=== PATIENT | female | born 1985 | race Caucasian/White ===

== ENCOUNTER 2020-10-01 10:23 | Outpatient (REF) | payer BC, SELFPAY ==
[2020-10-01 10:32] LABS: MANUAL DIFF FLAG NO
[2020-10-01 10:54] LABS: Basophils Percent Auto 0.6 % (0-2); Eosinophils Absolute Auto 0.1 X10*3/uL (0.0-0.4); Eosinophils Percent Auto 2.6 % (0-4); Hematocrit 41.4 % (37-47); Imm Gran Abs Auto 0.01 X10*3/uL (0.00-0.03); Imm Gran Pct Auto 0.2 % (0.0-0.4); Lymphocytes Absolute Auto 1.6 X10*3/uL (1.2-4.9); Lymphocytes Percent Auto 29.6 % (20-40); Mean Corpuscular HGB Conc 31.4 g/dl (31.0-35.0); Mean Corpuscular Hemoglobin 25.6 pg (27.0-33.0); Mean Corpuscular Volume 81.7 fL (80-98); Mean Platelet Volume 12.4 fL (9.4-12.3); Monocytes Absolute Auto 0.3 X10*3/uL (0.1-1.2); Monocytes Percent Auto 5.5 % (2-11); Neutrophils Absolute Auto 3.3 X10*3/uL (2.0-8.3); Neutrophils Percent Auto 61.5 % (45-73); Platelet Count 191 X10*3/uL (160-400); Red Blood Count 5.07 X10*6/uL (4.20-5.50); Red Cell Distribution Width 14.8 % (11.0-16.0); White Blood Count 5.4 X10*3/uL (4.8-10.8)
[2020-10-01 11:04] LABS: Estimated Average Glucose 103 mg/dL; Hemoglobin A1c % 5.2 %
[2020-10-01 11:09] LABS: Glucose Urine UA NEG (NEG); Leukocyte Esterase Urine NEG (NEG); Nitrite Urine NEG (NEG); Urine Blood NEG (NEG); Urine Ketones NEG (NEG); Urine Protein NEG (NEG-TRACE)
[2020-10-01 11:15] LABS: Appearance Urine CLEAR; Color Urine YELLOW
[2020-10-01 11:34] LABS: Alanine Aminotransferase 11 U/L (0-31); Albumin Level 3.8 g/dL (3.5-5.0); Alkaline Phosphatase 28 U/L (39-117); Anion Gap 12 (12-20); Aspartate Amino Transferase 12 U/L (5-31); Bilirubin Total 0.3 mg/dL (0.0-1.0); Blood Urea Nitrogen 19 mg/dL (9-16); Calcium 8.6 mg/dL (8.4-10.2); Carbon Dioxide 22 mmol/L (22-29); Chloride 110 mmol/L (96-108); Cholesterol 146 mg/dL; Estimated Glomerular Filt Rate > 60; Glucose Fasting 85 mg/dL (60-99); HDL Cholesterol 31 mg/dL; LDL Cholesterol Calculated 95 mg/dl; Potassium 4.2 mmol/L (3.3-5.1); Sodium 140 mmol/L (135-145); Total Protein 7.1 g/dL (6.5-8.0); Triglycerides 104 mg/dL
[2020-10-02 12:38] LABS: Iron 49 mcg/dL (30-160); Percent Iron Saturation 11 % (15-50); Total Iron Binding Capacity 458 mcg/dL (228-428); Unsaturated Iron Binding 409 ug/dL
== END 2020-10-01 10:24 | disposition home or self-care (01) ==
LOC: HO.LNP 10:23
PROVIDERS: PCP Internal Medicine; Visit Provider Internal Medicine
DX: Z00.00 Encounter for general adult medical examination without abnormal findings (principal); D50.8 Other iron deficiency anemias; R73.03 Prediabetes
CPT/HCPCS: 80053; 80061; 81003; 83036; 83540; 85025

== ENCOUNTER 2021-10-06 10:35 | Outpatient (REF) | payer BC, SELFPAY ==
[2021-10-06 10:42] LABS: MANUAL DIFF FLAG NO
[2021-10-06 11:01] LABS: Appearance Urine CLEAR; Color Urine YELLOW; Glucose Urine UA NEG (NEG); Leukocyte Esterase Urine NEG (NEG); Nitrite Urine NEG (NEG); Urine Blood TRACE (NEG); Urine Ketones NEG (NEG); Urine Protein NEG (NEG-TRACE)
[2021-10-06 11:02] LABS: Basophils Percent Auto 0.4 % (0-2); Eosinophils Absolute Auto 0.1 X10*3/uL (0.0-0.4); Eosinophils Percent Auto 2.8 % (0-4); Hematocrit 38.8 % (37.0-47.0); Hemoglobin 11.9 g/dl (12.0-16.0); Imm Gran Abs Auto 0.02 X10*3/uL (0.00-0.03); Imm Gran Pct Auto 0.4 % (0.0-0.4); Lymphocytes Absolute Auto 1.3 X10*3/uL (1.2-4.9); Lymphocytes Percent Auto 28.4 % (20-40); Mean Corpuscular HGB Conc 30.7 g/dl (31.0-35.0); Mean Corpuscular Hemoglobin 24.3 pg (27.0-33.0); Mean Corpuscular Volume 79.2 fL (80.0-98.0); Mean Platelet Volume 12.2 fL (9.4-12.3); Monocytes Absolute Auto 0.3 X10*3/uL (0.1-1.2); Neutrophils Absolute Auto 2.9 x10*3/uL (2.0-8.3); Platelet Count 177 X10*3/uL (160-400); Red Cell Distribution Width 14.6 % (11.0-16.0); White Blood Count 4.7 X10*3/uL (4.8-10.8)
[2021-10-06 11:18] LABS: Alanine Aminotransferase 13 U/L (0-31); Albumin Level 3.7 g/dL (3.5-5.0); Alkaline Phosphatase 36 U/L (39-117); Anion Gap 11 (12-20); Aspartate Amino Transferase 12 U/L (5-31); Bilirubin Total 0.2 mg/dL (0.0-1.0); Blood Urea Nitrogen 17 mg/dL (9-16); Calcium 8.6 mg/dL (8.4-10.2); Carbon Dioxide 23 mmol/L (22-29); Chloride 108 mmol/L (96-108); Cholesterol 153 mg/dL; Estimated Average Glucose 100 mg/dL; Estimated Glomerular Filt Rate > 60; Glucose Random 89 mg/dL (60-115); HDL Cholesterol 38 mg/dL; Hemoglobin A1c % 5.1 %; Iron 25 mcg/dL (30-160); LDL Cholesterol Calculated 97 mg/dl; Potassium 3.8 mmol/L (3.3-5.1); Sodium 138 mmol/L (135-145); Total Protein 6.8 g/dL (6.5-8.0); Triglycerides 90 mg/dL
[2021-10-06 11:26] LABS: Percent Iron Saturation 5 % (15-50); Total Iron Binding Capacity 469 mcg/dL (228-428); Unsaturated Iron Binding 444 ug/dL
[2021-10-06 11:39] LABS: Bacteria Urine TRACE /LPF; Squamous Epithelial Cell Urine 1+ /LPF; WBC Urine 0 /HPF (0-4)
[2021-10-06 12:32] LABS: Creatinine Urine 79.79 mg/dL; Microalbum/Creatinine Ratio Ur 6.2 ug/mg cr
== END 2021-10-06 10:36 | disposition home or self-care (01) ==
LOC: HO.LNP 10:35
PROVIDERS: Visit Provider Internal Medicine
DX: Z00.00 Encounter for general adult medical examination without abnormal findings (principal); D50.8 Other iron deficiency anemias; R73.03 Prediabetes; E78.6 Lipoprotein deficiency
CPT/HCPCS: 80053; 80061; 81001; 81003; 82043; 83036; 83540; 85025

== ENCOUNTER 2022-09-21 09:21 | Outpatient (REF) | payer BC, SELFPAY ==
--- NOTE | ~2022-09-21 | XR_ITS ---
EXAMINATION: XR FINGER, RIGHT CLINICAL INFORMATION: Pain right finger COMPARISON: None TECHNIQUE: AP view right hand and 2 views of the right third finger are obtained for 3 views. FINDINGS: There is no fracture, dislocation, destructive process. No periarticular demineralization. No joint narrowing or erosive change or chondrocalcinosis. There is a small nonexpansile benign-appearing sclerotic lesion medial tuft distal phalanx 3rd finger, likely bone island. No periostitis. XR/XR finger RT min 2V IMPRESSION: 1. No fracture, destructive process, or arthropathy. 2. Benign-appearing sclerotic lesion tuft distal phalanx 3rd finger, likely bone island.
== END 2022-09-21 09:22 | disposition home or self-care (01) ==
LOC: HO.XRAY 09:21
PROVIDERS: PCP Internal Medicine; Visit Provider Internal Medicine
DX: M79.644 Pain in right finger(s) (principal)
CPT/HCPCS: 73140

== ENCOUNTER 2022-10-09 11:12 | Outpatient (REF) | payer BC, SELFPAY ==
[2022-10-09 11:19] LABS: MANUAL DIFF FLAG NO
[2022-10-09 11:45] LABS: Basophils Percent Auto 0.4 % (0-2); Eosinophils Absolute Auto 0.1 X10*3/uL (0.0-0.4); Eosinophils Percent Auto 2.2 % (0-4); Hematocrit 40.2 % (37.0-47.0); Hemoglobin 13.2 g/dl (12.0-16.0); Imm Gran Abs Auto 0.01 X10*3/uL (0.00-0.03); Imm Gran Pct Auto 0.2 % (0.0-0.4); Lymphocytes Absolute Auto 1.2 X10*3/uL (1.2-4.9); Lymphocytes Percent Auto 22.7 % (20-40); Mean Corpuscular HGB Conc 32.8 g/dl (31.0-35.0); Mean Corpuscular Hemoglobin 27.4 pg (27.0-33.0); Mean Corpuscular Volume 83.6 fL (80.0-98.0); Mean Platelet Volume 12.3 fL (9.4-12.3); Monocytes Absolute Auto 0.3 X10*3/uL (0.1-1.2); Monocytes Percent Auto 6.1 % (2-11); Neutrophils Absolute Auto 3.5 x10*3/uL (2.0-8.3); Neutrophils Percent Auto 68.4 % (45-73); Platelet Count 169 X10*3/uL (160-400); Red Blood Count 4.81 X10*6/uL (4.20-5.50); Red Cell Distribution Width 12.6 % (11.0-16.0); White Blood Count 5.1 X10*3/uL (4.8-10.8)
[2022-10-09 11:48] LABS: Appearance Urine Clear; Color Urine Yellow; Glucose Urine UA Negative (Negative); Leukocyte Esterase Urine Negative (Negative); Nitrite Urine Negative (Negative); PH 6.5 (5.0-9.0); Specific Gravity - Urine 1.015 (1.005-1.025); Urine Blood Negative (Negative); Urine Ketones Negative (Negative); Urine Protein Negative (Neg-Trace)
[2022-10-09 11:52] LABS: Bacteria Urine None Seen (None Seen); Hyaline Casts Urine 0-2 /LPF (0-2); RBC Urine 0-2 /HPF (0-2); Squamous Epithelial Cell Urine 0-2 /HPF (0-2); WBC Urine 0-5 /HPF (0-5)
[2022-10-09 12:00] LABS: Alanine Aminotransferase 16 U/L (0-31); Albumin Level 3.8 g/dL (3.5-5.0); Alkaline Phosphatase 37 U/L (39-117); Anion Gap 11 (12-20); Aspartate Amino Transferase 13 U/L (5-31); Bilirubin Total 0.4 mg/dL (0.0-1.0); Blood Urea Nitrogen 18 mg/dL (9-16); Calcium 8.3 mg/dL (8.4-10.2); Carbon Dioxide 24 mmol/L (22-29); Chloride 107 mmol/L (96-108); Cholesterol 146 mg/dL; Estimated Glomerular Filt Rate > 60; Glucose Fasting 84 mg/dL (60-99); HDL Cholesterol 33 mg/dL; Iron 76 mcg/dL (30-160); LDL Cholesterol Calculated 92 mg/dl; Percent Iron Saturation 21 % (15-50); Potassium 4.1 mmol/L (3.3-5.1); Sodium 138 mmol/L (135-145); Total Iron Binding Capacity 369 mcg/dL (228-428); Total Protein 6.7 g/dL (6.5-8.0); Triglycerides 107 mg/dL; Unsaturated Iron Binding 293 ug/dL
[2022-10-09 12:05] LABS: Estimated Average Glucose 100 mg/dL; Hemoglobin A1c % 5.1 %
[2022-10-09 12:28] LABS: Creatinine Urine 91.83 mg/dL; Microalbum/Creatinine Ratio Ur 6.5 ug/mg cr
== END 2022-10-09 11:13 | disposition home or self-care (01) ==
LOC: HO.LNP 11:12
PROVIDERS: Visit Provider Internal Medicine
DX: Z00.00 Encounter for general adult medical examination without abnormal findings (principal); D50.8 Other iron deficiency anemias; R73.09 Other abnormal glucose; E78.6 Lipoprotein deficiency
CPT/HCPCS: 80053; 80061; 81001; 82043; 83036; 83540; 85025

== ENCOUNTER 2023-04-28 08:24 | Outpatient (REF) | payer BC, SELFPAY | END 2023-04-28 08:25 | disposition home or self-care (01) | LOC: HO.HMGCX 08:24 | PROVIDERS: PCP Internal Medicine; Visit Provider Internal Medicine | DX: R10.84 Generalized abdominal pain (principal) | CPT/HCPCS: 76700 ==

== ENCOUNTER 2023-05-17 12:52 | Outpatient (AMB) | payer BC, SELFPAY ==
--- NOTE | 2023-05-17 12:54 | MHC.OFFVIS ---
Intake Vital Signs 05/17/23 12:57 Height 5 ft 8 in Weight 189 lb BMI 28.7 BP 188/117 H Blood Pressure Location Rt brachial Position Sitting Pulse 118 H Intake Visit Reasons: Abdominal pain, cholelithiasis Intake Note: Patient referred for gallbladder issues. Patient reports 3 pain attacks since January. Experienced nausea. Was diagnoses with Covid on 05-02-23 at home tests showing negative results. Denies diarrhea or constipation. Lending Manager Required: No Accompanied by: Self / Same As Patient Allergies No Known Allergies Allergy (Verified 05/17/23 13:01) HPI HPI Comments History of Present Illness Details Patient presents because of recurrent bouts of right upper quadrant pain radiating around to her back. She has had at least 3 episodes of this. Workup her daughter by her private physician demonstrated cholelithiasis. Patient otherwise is tolerating her diet. She is having regular bowel habits. She has never been jaundiced before. Chart was reviewed patient evaluated [facility] Surgical History (Updated 05/17/23 @ 13:35 by Tramaine Cochran MD) Hx of local excision of skin lesion Family History (Updated 05/17/23 @ 13:04 by PAYTON Lockett) Father Prostate CA Social History (Updated 05/17/23 @ 13:05 by PAYTON Lockett) Alcohol intake: never Patient Tobacco Use Status: Never used Tobacco Physical Exam Vital Signs: Last Vital Signs Pulse 118 H 05/17/23 12:57 BP 188/117 H 05/17/23 12:57 BMI result Body Mass Index 28.7 Chest Other: Chest breath sounds bilaterally, HS 1 in 2 GI Other: Abdomen soft, moderately corpulent, benign. Assessment & Plan Assessment & Plan (1) Recurrent biliary colic: Code(s): K80.50 - Calculus of bile duct without cholangitis or cholecystitis without obstruction Plan A lengthy discussion was had about the risks, benefits, alternatives laparoscopic possible open cholecystectomy which included but not limited to bleeding, infection, recurrence of symptoms, numbness, pain, scarring, bowel or bile duct injury or leak and the patient wishes to proceed. All questions were answered. Arrangements will be made for this on the day which is convenient for the patient. Coding Level of Care Code New Pt Level 5 (88423) Diagnoses Recurrent biliary colic K80.50
[2023-05-17 12:57] VITALS: BP 188/117; PULSE 118; BMI 28.7
== END 2023-05-17 13:17 | disposition home or self-care (01) ==
PROVIDERS: PCP Internal Medicine; Visit Provider Surgery
DX: K80.50 Calculus of bile duct without cholangitis or cholecystitis without obstruction (principal)
CPT/HCPCS: 99204

== ENCOUNTER → 2023-05-17 12:52 | Outpatient (BNVA) | payer BC, SELFPAY | PROVIDERS: PCP Internal Medicine; Visit Provider Surgery ==

== ENCOUNTER 2023-06-03 08:22 | Day surgery (SDC) | payer BC, SELFPAY ==
[2023-05-31 15:20] VITALS: BMI 28.7
--- NOTE | 2023-06-02 04:25 | MHC.SHP ---
Pre-Procedural Eval Section A Date of Service: 06/02/23 The patient is an INPATIENT: No Changes since office visit: No Cold of Flu in the past 2 weeks, No New Medical Problems, No Changes in Medication and No Patient answered all questions The History & Physical has been completed within 30 days and I have reviewed it.: Yes Section B Chief Complaint: Calculus of bile duct without cholangitis or vazquez Allergies: Allergies Allergy/AdvReac Type Severity Reaction Status Date / Time No Known Allergies Allergy Verified 05/17/23 13:01 Plan I have reviewed the history and physical and performed a pertinent physical examination on my patient. No changes have occurred unless specified. Time Spent With Patient Time: Total time managing care of this patient today ____ minutes.
[2023-06-03] VITALS (9 sets, daily range): BP systolic 129–148; BP diastolic 86–93; PULSE 71–83; RESP 16–18; TEMP 36.6–37.2; O2SAT 96–98
[2023-06-03 08:42] LABS: UPreg QC Valid YES; Urine Pregnancy NEGATIVE (NEGATIVE)
--- NOTE | 2023-06-03 08:55 | P.CONAN_ITS ---
Documented by User: Yumiko Garnett NP 06/02/23 08:16 HPI - Anesthesia Eval Consult details Narrative: 38yo F for Cholecystectomy Laparoscopic PMFSH Active Problems Active Problems: All Active Problems (Updated 05/17/23 @ 13:35 by Tramaine Cochran MD) Recurrent biliary colic (Acute) Past Medical History Medical History Asthma Anxiety Family History Family History Father Prostate CA Surgical History Surgical History Hx of local excision of skin lesion Social History Social History Alcohol intake: never Patient Tobacco Use Status: Never used Tobacco Advance Directives: No Advance Directives Information Provided: Yes Meds Allergies Allergy/AdvReac Type Severity Reaction Status Date / Time No Known Allergies Allergy Verified 05/17/23 13:01 Home Medications Medication Instructions Recorded Confirmed Last Taken Type cetirizine 10 mg capsule (Zyrtec) 10 mg PO DAILY PRN Allergy Symptoms 05/17/23 05/31/23 Unknown History fluticasone propionate 50 1 spray intranasal DAILY 05/17/23 05/31/23 Unknown History mcg/actuation nasal spray,suspension lorazepam 1 mg capsule,extended 1 mg PO DAILY 05/17/23 05/31/23 Unknown History release 24 hr albuterol sulfate 90 mcg/actuation 2 puff inhalation Q4H PRN Wheezing 05/31/23 05/31/23 Unknown History aerosol inhaler Exam Exam Date and Time: June 02, 2023 0816 Height,Weight and Vital Signs: Height 5 ft 8 in Weight 85.729 kg Pertinent Lab Results Pertinent Lab Results: Laboratory Tests 10/09/22 08:00 WBC 5.1 Hgb 13.2 Hct 40.2 Plt Count 169 Sodium 138 Potassium 4.1 Chloride 107 Carbon Dioxide 24 BUN 18 H Creatinine 0.76 Assessment and Plan Assessment Anesthesia Assessment: Chart Reviewed Documented by User: Arianna Telles DO 06/03/23 08:57 PMFSH Past Medical History Medical History Asthma Anxiety Family History Family History Father Prostate CA Family history of problems with anesthesia: No Surgical History Surgical History Hx of local excision of skin lesion History of Problems with Anesthesia: No Social History Social History Alcohol intake: never Patient Tobacco Use Status: Never used Tobacco Advance Directives: No Advance Directives Information Provided: Yes Meds Allergies Allergy/AdvReac Type Severity Reaction Status Date / Time No Known Allergies Allergy Verified 05/17/23 13:01 Home Medications Medication Instructions Recorded Confirmed Last Taken Type cetirizine 10 mg capsule (Zyrtec) 10 mg PO DAILY PRN Allergy Symptoms 05/17/23 05/31/23 Unknown History fluticasone propionate 50 1 spray intranasal DAILY 05/17/23 05/31/23 Unknown History mcg/actuation nasal spray,suspension lorazepam 1 mg capsule,extended 1 mg PO DAILY 05/17/23 05/31/23 Unknown History release 24 hr albuterol sulfate 90 mcg/actuation 2 puff inhalation Q4H PRN Wheezing 05/31/23 05/31/23 Unknown History aerosol inhaler Exam Exam Date and Time: June 03, 2023 0855 Height,Weight and Vital Signs: Height 5 ft 8 in Weight 85.729 kg Vital Signs Temperature 99.0 F 06/03/23 08:50 Pulse Rate 81 06/03/23 08:50 Respiratory Rate 18 06/03/23 08:50 Blood Pressure 138/93 H 06/03/23 08:50 Pulse Oximetry 98 06/03/23 08:50 Oxygen Delivery Method Room Air 06/03/23 08:50 Temperature 99.0 F 06/03/23 08:50 Pulse Rate 81 06/03/23 08:50 Respiratory Rate 18 06/03/23 08:50 Blood Pressure 138/93 H 06/03/23 08:50 Pulse Oximetry 98 06/03/23 08:50 Oxygen Delivery Method Room Air 06/03/23 08:50 Airway Mallampati Class: I TM Dist: >3cm Neck ROM: Full Loose/Missing/Broken Teeth: No Heart: S1S2 Lungs: CTAB Assessment and Plan Assessment Anesthesia Assessment: Anesthesia Plan Discussed and Chart Reviewed Final Anesthetic Review Family History of Problems with Anesthesia: No History of Problems with Anesthesia: No NPO: Yes ASA Class: II Final Preanesthetic Review: No Changes in Pt Med Stat, Meds/Allgs Chart Re viewed, Consent Obtained/Reviewed and Anes Risks/Benef Reviewed Patient Risk: Low Procedure Risk: Low Anesthetic Plan Anesthetic Plan: GA and Agree w/ Assess. and Plan Disposition: Standard PACU
[2023-06-03] MEDS: Lactated Ringers 1,000 ML 100 ML IVCONT (08:57)
--- NOTE | 2023-06-03 09:50 | P.OP_ITS ---
Operative Note Operative Note Date of Service: 06/03/23 Narrative: Preoperative diagnosis: [] recurrent biliary colic Postop diagnosis: [] same Procedure [] laparoscopic cholecystectomy Surgeon: [] Dimas Vehicle Body Maker: [] Doron Type of Anesthesia: [] general Indication for surgery: [] very large gallbladder with omental adhesions to it Findings: [] patient brought to the operating room, placed on operative table in supine position, after adequate level of general anesthesia was induced, the patient's abdomen which was moderately corpulent was prepped and draped in usual sterile fashion. Using a supraumbilical curvilinear incision, Arias technique was used to insufflate the abdominal cavity to 15 mm of CO2. Upper midline and right subcostal ports were placed under direct laparoscopic view, and the patient placed in reverse Trendelenburg position, and tilted to the left. Findings were as noted above. Gallbladder was grasped using laparoscopic graspers and retracted superiorly and laterally. Omental adhesions were swept off the gallbladder were its hilum was approached. The common bile duct, Cystic artery and cystic duct were all identified. The latter 2 were traced directly into the gallbladder, circumferentially dissected out, and critical view obtained. Each was clipped proximally x2, distally x1, and transected. Gallbladder which was intrahepatic was cauterized from the gallbladder fossa using Bovie. A small posterior descending vessel well into the hilum was clipped during the dissection. Specimen was placed in an Endo-Catch bag, a retrieved through the umbilical port. Abdominal cavity was copiously irrigated, and secured hemostasis. All ports removed under direct laparoscopic view. Wounds were closed in the following manner; umbilical wound has fascia reapproximated using interrupted 0 Vicryl sutures. Skin wounds were closed using subcuticular 4-0 Vicryl sutures followed by Steri-Strips and sterile dressings. Wounds were infiltrated 0.5% Marcaine at completion. Sponge, needle, instrument counts were reported to be correct. Patient tolerated the procedure well and emerged from anesthesia in stable condition. EBL minimal
[2023-06-03] MEDS: Acetaminophen 325 MG TABLET 650 MG PO (10:31)
== END 2023-06-03 11:39 | disposition home or self-care (01) ==
PROVIDERS: Nurse Practitioner; PCP Internal Medicine; Visit Provider Surgery
PROC: 0FT44ZZ Resection of Gallbladder, Percutaneous Endoscopic Approach (ICD-10-PCS; CPT 47562; principal; 2023-06-03 10:20)
DX: K80.10 Calculus of gallbladder with chronic cholecystitis without obstruction (principal); K82.8 Other specified diseases of gallbladder; J45.909 Unspecified asthma, uncomplicated; F41.9 Anxiety disorder, unspecified; Z79.51 Long term (current) use of inhaled steroids; Z79.899 Other long term (current) drug therapy; Z86.16 Personal history of COVID-19
CPT/HCPCS: 47562; 81025; 88304; J0665; J0690; J1100; J1885; J2405; J3010

== ENCOUNTER → 2023-06-03 08:22 | Outpatient (BNV) | payer BC, SELFPAY | PROVIDERS: PCP Internal Medicine; Visit Provider Surgery | DX: K80.50 Calculus of bile duct without cholangitis or cholecystitis without obstruction (principal) | CPT/HCPCS: 47562 ==

== ENCOUNTER 2023-06-15 10:41 | Outpatient (AMB) | payer BC, SELFPAY ==
[2023-06-15 10:48] VITALS: BP 184/90; PULSE 78
--- NOTE | 2023-06-15 10:48 | A.OFFVIS_ITS ---
Intake Vital Signs 06/15/23 10:48 Weight 186 lb BP 184/90 H Blood Pressure Location Rt brachial Position Sitting Pulse 78 Intake Visit Reasons: s/p lap vazquez Intake Note: Patient here s/p la vazquez on 06-03-23. Reports incision healing well. C/o tenderness. Denies oozing, itch. No longer taking rx pain meds. Senior Business Analyst Required: No Accompanied by: Self / Same As Patient Allergies No Known Allergies Allergy (Verified 06/15/23 10:49) HPI HPI Comments History of Present Illness Details Patient presents for follow-up. Aside from mild incisional discomfort , she is doing well. She is tolerating a diet. Having regular bowel habits. Activity level of is increasing. PFSH Medical History Asthma Anxiety Surgical History Hx of local excision of skin lesion Family History Father Prostate CA Alcohol intake: never Patient Tobacco Use Status: Never used Tobacco Physical Exam Vital Signs: Last Vital Signs Pulse 78 06/15/23 10:48 BP 184/90 H 06/15/23 10:48 Eyes Other: Anicteric GI Other: Soft. All wounds clean dry and intact. Assessment & Plan Assessment & Plan (1) Recurrent biliary colic: Code(s): K80.50 - Calculus of bile duct without cholangitis or cholecystitis without obstruction Plan Patient has been given local instructions, and will follow-up p.r.n.. Avoid strenuous activities next few weeks time. Ambulate as tolerated. All questions answered. Coding Level of Care Code Global (39661) Diagnoses Recurrent biliary colic K80.50
== END 2023-06-15 10:53 | disposition home or self-care (01) ==
PROVIDERS: PCP Internal Medicine; Visit Provider Surgery
DX: K80.50 Calculus of bile duct without cholangitis or cholecystitis without obstruction (principal)
CPT/HCPCS: 99024

== ENCOUNTER → 2023-06-15 10:41 | Outpatient (BNVA) | payer BC, SELFPAY | PROVIDERS: PCP Internal Medicine; Visit Provider Surgery ==

== ENCOUNTER 2023-10-14 12:07 | Outpatient (REF) | payer BC, SELFPAY ==
[2023-10-14 12:14] LABS: MANUAL DIFF FLAG NO
[2023-10-14 12:22] LABS: Basophils Percent Auto 0.2 % (0-2); Eosinophils Absolute Auto 0.1 X10*3/uL (0.0-0.4); Hematocrit 39.4 % (37.0-47.0); Hemoglobin 12.9 g/dl (12.0-16.0); Imm Gran Abs Auto 0.01 X10*3/uL (0.00-0.03); Imm Gran Pct Auto 0.2 % (0.0-0.4); Lymphocytes Absolute Auto 0.9 X10*3/uL (1.2-4.9); Lymphocytes Percent Auto 20.8 % (20-40); Mean Corpuscular HGB Conc 32.7 g/dl (31.0-35.0); Mean Corpuscular Hemoglobin 26.8 pg (27.0-33.0); Mean Corpuscular Volume 81.9 fL (80.0-98.0); Mean Platelet Volume 10.8 fL (9.4-12.3); Monocytes Absolute Auto 0.3 X10*3/uL (0.1-1.2); Monocytes Percent Auto 6.7 % (2-11); Neutrophils Absolute Auto 3.1 x10*3/uL (2.0-8.3); Neutrophils Percent Auto 70.1 % (45-73); Platelet Count 175 X10*3/uL (160-400); Red Blood Count 4.81 X10*6/uL (4.20-5.50); Red Cell Distribution Width 13.5 % (11.0-16.0); White Blood Count 4.5 X10*3/uL (4.8-10.8)
[2023-10-14 12:23] LABS: Appearance Urine Clear; Color Urine Yellow; Glucose Urine UA Negative (Negative); Leukocyte Esterase Urine Negative (Negative); Nitrite Urine Negative (Negative); PH 6.5 (5.0-9.0); Specific Gravity - Urine 1.015 (1.005-1.025); Urine Blood Negative (Negative); Urine Ketones Negative (Negative); Urine Protein Negative (Neg-Trace)
[2023-10-14 12:25] LABS: Bacteria Urine None Seen (None Seen); Hyaline Casts Urine 0-2 /LPF (0-2); RBC Urine 0-2 /HPF (0-2); Squamous Epithelial Cell Urine 0-2 /HPF (0-2); WBC Urine 0-5 /HPF (0-5)
[2023-10-14 12:56] LABS: Creatinine Urine 89.21 mg/dL; Microalbum/Creatinine Ratio Ur 6.7 ug/mg cr (<30)
[2023-10-14 13:07] LABS: TSH reflex Free T4 2.34 uIU/mL (0.32-4.0)
[2023-10-14 13:12] LABS: Alanine Aminotransferase 21 U/L (0-31); Albumin Level 3.6 g/dL (3.5-5.0); Alkaline Phosphatase 44 U/L (39-117); Anion Gap 12 (12-20); Aspartate Amino Transferase 16 U/L (5-31); Bilirubin Total 0.4 mg/dL (0.0-1.0); Blood Urea Nitrogen 12 mg/dL (9-16); Calcium 8.5 mg/dL (8.4-10.2); Carbon Dioxide 25 mmol/L (22-29); Chloride 108 mmol/L (96-108); Cholesterol 154 mg/dL (<200); Estimated Glomerular Filt Rate > 60; Glucose Fasting 84 mg/dL (60-99); HDL Cholesterol 38 mg/dL (>40); Iron 75 mcg/dL (30-160); LDL Cholesterol Calculated 98 mg/dL (<100); Percent Iron Saturation 22 % (15-50); Potassium 3.6 mmol/L (3.3-5.1); Sodium 141 mmol/L (135-145); Total Iron Binding Capacity 348 mcg/dL (228-428); Total Protein 6.4 g/dL (6.5-8.0); Triglycerides 92 mg/dL (<150); Unsaturated Iron Binding 273 ug/dL
[2023-10-14 13:16] LABS: Estimated Average Glucose 100 mg/dL; Hemoglobin A1c % 5.1 % (<6.0)
== END 2023-10-14 12:08 | disposition home or self-care (01) ==
LOC: HO.LNP 12:07
PROVIDERS: Visit Provider Internal Medicine
DX: Z00.00 Encounter for general adult medical examination without abnormal findings (principal); R73.03 Prediabetes; D50.8 Other iron deficiency anemias; E78.6 Lipoprotein deficiency
CPT/HCPCS: 80053; 80061; 81001; 82043; 82570; 83036; 83540; 84443; 85025

== ENCOUNTER 2023-12-12 17:20 | Emergency (ER) | payer BC, SELFPAY ==
[2023-12-12 17:28] VITALS: BP 113/66; PULSE 57; RESP 18; TEMP 36.6; O2SAT 98; BMI 30.8
--- NOTE | 2023-12-12 18:01 | ED_ITS ---
HPI - Skin/Abscess/Foreign Bdy General Chief complaint: Skin/Abscess/Foreign Body Stated complaint: left hand thumb wound/knife while cooking Time Seen by Provider: 12/12/23 17:42 Source: patient Mode of arrival: ambulatory Limitations: no limitations History of Present Illness HPI narrative: 38-year-old female previously healthy, [id number] here with complaints of laceration to the left thumb from a kitchen knife while cutting an onion. Patient's tetanus is unknown. She denies any associated weakness, numbness, tingling of the extremity. Related Data Home Medications ?Medication ?Instructions ?Recorded ?Confirmed cetirizine 10 mg capsule (Zyrtec) 10 mg PO DAILY PRN Allergy Symptoms 05/17/23 05/31/23 fluticasone propionate 50 1 spray intranasal DAILY 05/17/23 05/31/23 mcg/actuation nasal spray,suspension lorazepam 1 mg capsule,extended 1 mg PO DAILY 05/17/23 05/31/23 release 24 hr albuterol sulfate 90 mcg/actuation 2 puff inhalation Q4H PRN Wheezing 05/31/23 05/31/23 aerosol inhaler Allergies Allergy/AdvReac Type Severity Reaction Status Date / Time No Known Allergies Allergy Verified 12/12/23 17:28 Review of Systems Review of Systems: Yes all other systems are reviewed and are negative Constitutional: Constitutional: Reports no additional constitutional complaints, Denies body ache(s), Denies chills, Denies fever(s), Denies head ache(s) and Denies weakness Eyes: Eyes: Reports no additional eye complaints and Denies change in vision ENT: Reports system reviewed and no additional complaints, except as documented, Denies dizziness, Denies headache(s), Denies nasal congestion, Denies nasal discharge and Denies neck pain Cardiovascular: Cardiovascular: Reports no additional cardiovascular complaints, Denies chest pain, Denies leg edema and Denies dyspnea Respiratory: Respiratory: Reports no additional respiratory complaints, Denies cough and Denies dyspnea Gastrointestinal: Gastrointestinal: Reports no additional gastrointestinal complaints, Denies abdominal pain, Denies diarrhea, Denies nausea and Denies vomiting Genitourinary: Genitourinary: Reports no additional female genitourinary complaints and Denies urinary incontinence Musculoskeletal: Musculoskeletal: Reports no additional musculoskeletal complaints, Denies back pain, Denies arthralgias, Denies joint swelling, Denies neck pain, Denies numbness and Denies tingling Integumentary/Breasts: Skin/Breast: Reports system reviewed and no additional complaints, except as docu, Denies rash and Reports wounds Neurologic: Reports system reviewed and no additional complaints, except as documented, Denies Abnormal speech present, Denies dizziness, Denies headache(s), Denies numbness, Denies tingling and Denies weakness [facility] Past Medical History Attestation statement: The following information was validated with the patient. Source: old records reviewed and nursing notes reviewed Medical History Asthma Anxiety Surgical History Hx of local excision of skin lesion Family History Family History Father Prostate CA Social History Social History Alcohol intake: never Patient Tobacco Use Status: Never used Tobacco Advance Directives: No Advance Directives Information Provided: No Physical Exam Vital Signs: Vital Signs: Last Vital Signs Temp 97.8 F 12/12/23 17:28 Pulse 57 12/12/23 17:28 Resp 18 12/12/23 17:28 BP 113/66 12/12/23 17:28 Pulse Ox 98 12/12/23 17:28 O2 Del Method Room Air 12/12/23 17:28 BMI result Body Mass Index 30.8 Const: General: cooperative, healthy appearing, comfortable and no acute distress Orientation/consciousness: patient oriented x3 Limitations: no limitations HEENT: Head: Yes normal to inspection Ears: hearing grossly normal bilaterally General nose exam: Normal external nose present Face and sinus: Yes normal facial exam Mouth: Normal oral and palatal mucosa present Throat: Yes posterior oropharynx normal Eyes: General: appearance normal, both eyes and all related structures Pupils: Equal, round and reactive pupils present Neck: Neck: Yes normal visual inspection Chest: Chest palpation & inspection: normal inspection of the chest Resp: Effort & Inspection: normal respiratory effort Auscultation: clear to auscultation bilaterally Cardio: Rate: regular rate Rhythm: regular rhythm Peripheral pulses: Peripheral pulses 2+ throughout GI: Inspection: Yes normal to inspection Palpation (GI): Soft to palpation and nontender Auscultation: normal bowel sounds Back/Spine/Pelvis: Thoracic/Lumbar Spine: thoracic and lumbar spine normal to inspection Skin: General skin exam: no rashes or lesions noted Neuro: General: patient oriented x3, no focal motor deficits and normal sensation to monofilament Cranial nerves: Yes Equal, round and reactive pupils present Cognition (Neuro): normal cognition Speech: No Abnormal speech present Gait exam (Neuro): Normal gait present Motor exam (neuro): 5/5 motor strength present throughout Extrem: Other: over the lateral aspect of the left thumb there is a skin avulsion. Bleeding is controlled. Full active and passive range of motion of the digit. Normal sensation. General: Yes normal to inspection Medical Decision Making Medical Decision Making MDM Narrative: 38-year-old female previously healthy, [id number] here with complaints of laceration to the left thumb from a kitchen knife while cutting an onion. Patient's tetanus is unknown. She denies any associated weakness, numbness, tingling of the extremity. See PE finding- over the lateral aspect of the left thumb there is a skin avulsion. Bleeding is controlled. Full active and passive range of motion of the digit. Normal sensation. See procedure note tetanus updated Differential Diagnosis Differential Diagnoses: The differential diagnosis associated with the presentation includes laceration, skin avulsion, low suspicion for tendon injury, bony injury, vascular injury Admission/Observation Consideration of admission/observation: Escalation of care including admi ssion/observation considered low suspicion for tendon injury, bony injury, vascular injury requiring advanced imaging, urgent ortho consultation Independent Historian Clinical information obtained from an independent historian. History obtained from or confirmed by: Friend Tests considered The following testing was considered but not selected: see discussion above Prescription Management I considered prescription management with: Antibiotic Procedures Laceration Laceration 1: Site: hand (1st digit ) Side (If applicable): left Description: flap Pre-repair: wound explored and irrigated extensively (1L NS) Skin layer closed with: other (skin glue ) Discharge Plan Discharge Clinical Impression: Avulsion of skin Patient Disposition: Home, Self-Care Instructions: Skin Avulsion (ED) Additional Instructions: please leave the dressing on for 24 hours then change it daily. Take Motrin/ Tylenol for any pain as needed Return for any signs of infection such as redness, drainage, fever Prescriptions: No Action albuterol sulfate 90 mcg/actuation HFA aerosol inhaler 2 puff inhalation Q4H PRN (Reason: Wheezing) lorazepam 1 mg capsule,extended release 24hr 1 mg PO DAILY Zyrtec 10 mg capsule 10 mg PO DAILY PRN (Reason: Allergy Symptoms) fluticasone propionate 50 mcg/actuation spray,suspension 1 spray intranasal DAILY Rx Instructions: administer into each nostril Referrals: Mauro Laguna MD [Primary Care Provider] - 1 week Print Language: Burmese
--- NOTE | 2023-12-12 18:17 | PC.NURSE ---
provider cleaned and dressed wound
[2023-12-12] MEDS: Diphth,Pertus(ACell),Tet Adult 0.5 ML SYRINGE IM (18:19)
[2023-12-12 18:24] VITALS: BP 157/97; PULSE 73; RESP 16; TEMP 36.6; O2SAT 96
== END 2023-12-12 18:25 | disposition home or self-care (01) ==
PROVIDERS: Emergency Provider Internal Medicine; PCP Internal Medicine
DX: S61.012A Laceration without foreign body of left thumb without damage to nail, initial encounter (principal); W26.0XXA Contact with knife, initial encounter; Y93.G1 Activity, food preparation and clean up; Y92.000 Kitchen of unspecified non-institutional (private) residence as the place of occurrence of the external cause; Y99.9 Unspecified external cause status; Z23 Encounter for immunization
CPT/HCPCS: 12001; 90471; 90715; 99282; 99284

== ENCOUNTER 2024-08-02 07:59 | Outpatient (AMB) | payer BC, SELFPAY ==
--- NOTE | 2024-08-02 08:04 | A.OFFVIS_ITS ---
Vital Signs 08/02/24 08:11 Height 5 ft 8 in Weight 226 lb BMI 34.4 BP 151/80 H Blood Pressure Location Rt brachial Position Sitting Pulse 90 Intake Visit Reasons: ? umbilical hernia Intake Note: Patient scheduled for umbilical hernia. First noticed 7days ago. Patient c/o: pain. Denies nausea, diarrhea, constipation. Note: lap vazquez repair 06-03-2023. Manager Farm Required: No Accompanied by: Self / Same As Patient Allergies No Known Allergies Allergy (Verified 08/02/24 08:09) HPI Comments Details: Patient whom I know from the past. She presents here with a symptomatic umbilical hernia. She is had this over the last few weeks time. She had surgery roughly a year and a half ago for laparoscopic cholecystectomy. She does occasional heavy lifting. She has had several bouts of being ill with significant coughing and straining and sneezing thinks this may have precipitated her hernia. Patient was otherwise tolerating her diet. He is having regular bowel habits. Chart was reviewed and patient evaluated [facility]PLACED BY [facility] Medical History Asthma Anxiety Surgical History Hx of local excision of skin lesion Family History Father Prostate CA Social History Alcohol intake: never Patient Tobacco Use Status: Never used Tobacco Physical Exam Vital Signs: Last Vital Signs Pulse 90 08/02/24 08:11 BP 151/80 H 08/02/24 08:11 BMI result Body Mass Index 34.4 Chest Other: Chest breath sounds bilaterally, HS 1 in 2 GI Other: Patient was examined both supine and standing with Valsalva. Moderately corpulent abdomen. Benign. Roughly 2-3 cm reducible umbilical hernia. Assessment & Plan Assessment & Plan (1) Reducible umbilical hernia: Code(s): K42.9 - Umbilical hernia without obstruction or gangrene Category: Surgical Plan Patient was like to have this hernia repaired. Risks, benefits, and alternatives of open umbilical hernia repair with mesh were reviewed with the patient and included but not limited to bleeding, infection, recurrence, numbness, pain, scarring, bowel injury and the patient wished to proceed. All questions answered. Arrangements were made for this on a day which is convenient for her. Coding Level of Care Code Est Pt Level 5 (81896) Diagnoses Reducible umbilical hernia K42.9
[2024-08-02 08:11] VITALS: BP 151/80; PULSE 90; BMI 34.4
== END 2024-08-02 08:17 | disposition home or self-care (01) ==
PROVIDERS: PCP Internal Medicine; Visit Provider Surgery
DX: K42.9 Umbilical hernia without obstruction or gangrene (principal)
CPT/HCPCS: 99214

== ENCOUNTER → 2024-08-25 05:54 | Outpatient (BNV) | payer BC, SELFPAY | PROVIDERS: PCP Internal Medicine; Visit Provider Surgery | DX: K42.9 Umbilical hernia without obstruction or gangrene (principal) | CPT/HCPCS: 49594 ==

== ENCOUNTER 2024-09-05 10:26 | Outpatient (AMB) | payer BC, SELFPAY ==
--- NOTE | 2024-09-05 10:29 | MHC.OFFVIS ---
Intake Visit Reasons: S/P umbilical hernia w/mesh Intake Note: Patient here s/p open umbilical herniorrhaphy with Bard mesh. Reports incision healing well. Patient c/o: no concerns. Did not take rx pain meds. Taking tylenol as needed. Surgery: 08-25-2024 Glass Engraver Required: No Accompanied by: Self / Same As Patient Allergies No Known Allergies Allergy (Verified 09/05/24 10:29) HPI Comments Details: Patient was status post umbilical hernia repair. She has no wound issues or complaints. She is tolerating a diet. Having regular bowel habits. She is increasing her activity level. [facility] Medical History Asthma Anxiety Surgical History (Updated 09/05/24 @ 10:59 by Tramaine Cochran MD) Reducible umbilical hernia (08/25/24) Hx laparoscopic cholecystectomy Hx of local excision of skin lesion Family History Father Prostate CA Social History Alcohol intake: never Patient Tobacco Use Status: Never used Tobacco Physical Exam GI Other: Abdomen is soft. Incision clean dry and intact healing well Assessment & Plan Assessment & Plan (1) Status post umbilical hernia repair, follow-up exam: Code(s): Z09 - Encounter for follow-up examination after completed treatment for conditions other than malignant neoplasm Category: Medical Plan Patient was been given local instructions, and will otherwise follow-up p.r.n.. All questions answered. She should avoid strenuous activities for next few weeks time. Coding Level of Care Code Est Pt Level 2 (26452) Diagnoses Status post umbilical hernia repair, follow-up exam Z09
== END 2024-09-05 10:43 | disposition home or self-care (01) ==
PROVIDERS: PCP Internal Medicine; Visit Provider Surgery
DX: Z09 Encounter for follow-up examination after completed treatment for conditions other than malignant neoplasm (principal)
CPT/HCPCS: 99212

== ENCOUNTER → 2024-09-05 10:26 | Outpatient (BNVA) | payer BC, SELFPAY | PROVIDERS: PCP Internal Medicine; Visit Provider Surgery ==

== ENCOUNTER 2024-10-25 13:16 | Outpatient (REF) | payer BC, SELFPAY ==
--- NOTE | ~2024-10-25 | XR_ITS ---
EXAMINATION: XR CHEST CLINICAL INFORMATION: R05.9 - Cough, unspecified COMPARISON: None available. TECHNIQUE: 2 views of the chest were obtained. FINDINGS: No consolidation, pleural effusion or pneumothorax. Cardiomediastinal silhouette size is normal. Osseous structures are grossly intact. Patient's large body habitus. Aspect clips right upper quadrant abdomen and likely prior cholecystectomy. XR/XR chest 2V IMPRESSION: No acute airspace disease. Electronically signed by: Abhi Lopez MD 10/25/2024 02:50 PM EDT
--- OUTSIDE RECORDS SUMMARY | 2024-10-25 15:50 | XMS_ITS ---
Author Organization Mauro Laguna MD Address [address] [place] [phone] Care Team Providers Care Clinical Medical Transcriptionist Name Role Phone Mauro Laguna Primary Care Provider REASON FOR VISIT Reschedule Wednesday appt Encounters Encounter Location Date Provider Diagnosis Mauro Laguna MD [facility] [address] [place] [phone] 07/07/2024 Mauro Laguna Plan Of Treatment Next Appt Details Provider Name:Mauro nieto, 12/04/2024 07:00:00 AM, [address] [place] [address], [address], [phone], Provider Name:Mauro nieto, 12/11/2024 01:00:00 PM, [address] [place] [address], [address], [phone], Progress Notes * Julianne BEACH NDOB:[birth year] (39 yo F)Acc No.[id number]:07/07/2024 Patient:?Julianne Beach :1985???Age:39 Y???Sex:Female Address:[address], [place] [address] * true * Date:? Generated for Woody webb/Radha/Benjamin on:?10/25/2024 03:50 PM EDT
--- OUTSIDE RECORDS SUMMARY | 2024-10-25 15:50 | XMS_ITS ---
Author Organization Mauro Laguna MD Address [address] [place] [phone] Care Team Providers Care Coil Tier Name Role Phone Mauro Laguna Primary Care Provider Allergies No Known Allergies REASON FOR VISIT 3 month Encounters Encounter Location Date Provider Diagnosis Mauro Laguna MD [facility] [address] [place] [phone] 07/10/2024 Mauro Laguna Plan Of Treatment Next Appt Details Provider Name:Mauro Rao ier, 12/04/2024 07:00:00 AM, [address] [place] [address], [address], [phone], Provider Name:Mauro Rao ier, 12/11/2024 01:00:00 PM, [address] [place] [address], [phone], Progress Notes * Julianne BEACH NDOB:[birth year] (39 yo F)Acc No.[id number]:07/10/2024 Progress Notes Patient:?Julianne BEACH Provider:?Mauro Laguna MD :1985???Age:39 Y???Sex:Female D ate:07/10/2024 Address:[address], [place], [id number] Subjective: * Chief Complaints: * ???1. 3 month. * ROS:?General/Constitutional:?Denies?Chills.?Denies?Fatigue.?Denies?Fever.?Denies?Headache.?ENT:?Denies?Sore throat.?Respiratory:?Denies?Cough.?Denies?Shortness of breath at rest.?Denies?Shortness of breath with exertion.?Gastrointestinal:?Denies?Diarrhea.?Denies?Nausea.? 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 * Allergies:?N.K.D.A. Objective: * Vitals:? Assessment: Plan: * Treatment: * * The named appointment provid er may or may not be the originator of this progress note, and it is not deemed complete until electronically signed by the appointment provider. Sign off status: Pending * Provider:?Mauro Laguna MD Date:?1 09/10/2023 Generated for Woody webb/Radha/eTpreriitting on:?10/25/2024 03:49 PM EDT
--- OUTSIDE RECORDS SUMMARY | 2024-10-25 15:50 | XMS_ITS ---
Author Organization Mauro Laguna MD Address [address] [place], [place] [phone] Care Team Providers Care Metalworker Name Role Phone Mauro Laguna Primary Care Provider [phone] Allergies No Known Allergies REASON FOR VISIT tonsil stone, [facility]wn[facility] to [facility] 09-26-24, dentist appt 10-03-24 so sent to PCP Medications Medication SIG (Take, Route, Frequency, Duration) Notes Start Date End Date Status Ibuprofen 800 MG 1 tablet with food o r milk as needed Orally every 8 hrs for 10 days 09/21/2022 Not-Taki ng FLUoxetine HCl 10 MG 1 capsule Orally On ce a day for 30 days 02/07/2024 Active Amoxicillin-Pot Clavulanate 875-125 MG 1 tablet Orally every 12 hrs for 7 days 10/05/2024 Active LORazepam 0.5 MG 1 tablet at bedtime as needed Orally Once a day for 30 days 04/13/2024 Active ProAir HFA 108 (90 Base) MCG/ACT 2 puffs as needed Inhalation every 4 hrs for 30 days 07/02/2015 Active Fluticasone Propionate 50 MCG/ACT SPRAY 1 SPRAY IN EACH NOSTRIL ONCE A DAY NASALLY for 90 Not-Taking Iron 325 (65 Fe) MG 1 tablet Orally twic e a week Not-Taking ZyrTEC Allergy 10 MG 1 tablet Orally Onc e a day for 30 day(s) Active Vital Signs Blood pressure systolic 140 mm Hg 10/06/19 25 Blood pressure diastolic 96 mm Hg 025 Height 68 in 10/05/2024 weight refused Encounters Encounter Location Date Provider Diagnosis Mauro Laguna MD [address] [place] [phone] 10/05/2024 Mauro Laguna Pharyngitis J02.9 and PMDD (premenstrual dysphoric disorder) F32.81 Assessments Encounter Date Diagnosis (ICD Code) Assessment Notes Treatment Notes Treatment Clinical Notes Section Notes 10/05/2024 Pharyngitis (ICD-10 - J02.9) patient verbalized understanding of medication and directions for use 10/05/2024 PMDD (premenstrual dysphoric disorder) (ICD-10 - F32.81) feel that she has no motivation and wants less fluoxitine Plan Of Treatment Medication Medication Name Sig Start Date Stop Date Notes FLUoxetine HCl 10 MG 1 capsule Orally On ce a day for 30 days 02/07/2024 Amoxicillin-Pot Clavulanate 875-125 MG 1 tablet Orally every 12 hrs for 7 days 10/05/2024 Treatment Notes Assessment Notes Pharyngitis patient verbalized u nderstanding of medication and directions for use PMDD (premenstrual dysphoric disorder) f eel that she has no motivation and wants less fluoxitine Next Appt Details Provider Name:Mauro nieto, 12/04/2024 07:00:00 AM, [address] [place] [address], [place] [address], [place], [place], [phone], Provider Name:Mauro nieto, 12/11/2024 01:00:00 PM, [address] [place] [address], [place] [address], [place], [place], [phone], Progress Notes * Julianne GOTTLIEB NDOB:[birth year] (39 yo F)Acc No.[id number]:10/05/2024 Progress Notes Patient:?Julianne GOTTLIEB Provider:?Mauro Laguna MD :1985???Age:39 Y???Sex:Female D ate:10/05/2024 Address:[address], [place], [id number] Subjective: * Chief Complaints: * ???Tonsil stoneWewnt to [facility] 09-26-24, dentist appt 10-03-24 so sent to PCP * HPI: ???Symptom(s):?patient is a 39 yo female here for evaluation , is having feeling of something in back of throat says that it began 2 weeks after the surgery. and feels like she is having trouble swallowing due to scratching sensation in back of throat. * ROS:?General/Constitutional:?Denies?Chills.?Denies?Fatigue.?Denies?Fever.?Denies?Headache.?ENT:?Patient denies?decreased sense of smell, any loss of taste, sore throat.?Denies?Sore throat.?Respiratory:?Denies?Cough.?Denies?Shortness of breath at rest.?Denies?Shortness of breath with exertion.?Gastrointestinal:?Denies?Diarrhea.?Denies?Nausea.?Musculoskeletal:?Patient denies?muscle aches.?Peripheral Vascular:?Patient denies?red and blue toes.? * Medical History:? * Surgical History:? * Hospitalization/Major Diagno stic Procedure:? * Medications:?TakingZyrTEC Al lergy 10 MG Tablet 1 tablet Orally Once a day ProAir HFA 108 (90 Base) MCG/ACT Aerosol Solution 2 puffs as needed Inhalation every 4 hrs LORazepam 0.5 MG Tablet 1 tablet at bedtime as needed Orally Once a day FLUoxetine HCl 20 MG Capsule 1 capsule Orally Once a day Taking ZyrTEC Allergy 10 MG Tablet 1 tablet Orally Once a day Taking ProAir HFA 108 (90 Base) MCG/ACT Aerosol Solution 2 puffs as needed Inhalation every 4 hrs Taking LORazepam 0.5 MG Tablet 1 tablet at bedtime as needed Orally Once a day Taking FLUoxetine HCl 20 MG Capsule 1 capsule Orally Once a day Not-Taking/PRNIbuprofen 800 MG Tablet 1 tablet with food or milk as needed Orally every 8 hrs Fluticasone Propionate 50 MCG/ACT Suspension SPRAY 1 SPRAY IN EACH NOSTRIL ONCE A DAY NASALLY Iron 325 (65 Fe) MG Tablet 1 tablet Orally twice a week Medication List reviewed and reconciled with the patientNot-Taking/PRN Ibuprofen 800 MG Tablet 1 tablet with food or milk as needed Orally every 8 hrs Not- Taking/PRN Fluticasone Propionate 50 MCG/ACT Suspension SPRAY 1 SPRAY IN EACH NOSTRIL ONCE A DAY NASALLY Not-Taking/PRN Iron 325 (65 Fe) MG Tablet 1 tablet Orally twice a week Medication List reviewed and reconciled with the patient * Allergies:?N.K.D.A.yes[Aller gies Verified] Objective: * Vitals:?Ht: 68, BP:140/96, R epeat BP:120/92. weight? refused. * Examination: ???General Examination: ?GENERAL APPEARANCE:?well developed, well nourished.?ORAL CAVITY:?pharynx is reddened.?THROAT:?is erythematous cannot see any white thing that her coworkers have seen.? Assessment: * Assessment: 1.?Pharyngitis - J02.9 (Prim brenda)???2.?PMDD (premenstrual dysphoric disorder) - F32.81??? Plan: * Treatment: 2.?PMDD (premenstrual dyspho shawn disorder)? Continue FLUoxetine HCl Capsule, 10 MG, 1 capsule, Orally, Once a day, 30 days, 30 Capsule, Refills 3.?? Notes: feel that she has no motivation and wants less fluoxitine?? * Procedure Codes:? * * Sign off status: Completed true * Provider:?Mauro Laguna MD Date:?0 10/05/2024 Generated for Woody webb/Radha/Benjamin on:?10/25/2024 03:49 PM EDT History and Physical Notes * HPI (History of Present Illness) Category Sub-Category Detail Notes Category Not es Symptom(s) patient is a 39 yo female here for evaluation , is having feeling of something in back of throat says that it began 2 weeks after the surgery. and feels like she is having trouble swallowing due to scratching sensation in back of throat Examination Category Sub-Category Detail Notes Category Not es General Examination GENERAL APPEARANCE: well developed , well nourished THROAT: is erythematous shashank ot see any white thing that her coworkers have seen ORAL CAVITY: pharynx is reddened
== END 2024-10-25 13:17 | disposition home or self-care (01) ==
LOC: HO.HMGCX 13:16
PROVIDERS: PCP Internal Medicine; Visit Provider Physician Assistant Medical
DX: R05.9 Cough, unspecified (principal)
CPT/HCPCS: 71046

== ENCOUNTER → 2024-10-25 13:34 | Outpatient (BNV) | payer BC, SELFPAY | PROVIDERS: PCP Internal Medicine; Visit Provider Radiology Diagnostic Radiology | DX: R05.9 Cough, unspecified (principal) | CPT/HCPCS: 71046 ==

== ENCOUNTER 2025-01-03 09:59 | Outpatient (AMB) | payer BC, SELFPAY ==
[2025-01-03 10:45] VITALS: BP 142/94; PULSE 97; TEMP 37; O2SAT 99; BMI 36.7
--- NOTE | 2025-01-03 10:45 | AM.OFFWIN_ITS ---
Intake Vital Signs 01/03/25 10:45 Height 5 ft 8 in Weight 241 lb 8 oz BMI 36.7 BP 142/94 H Blood Pressure Location Lt brachial Position Sitting Pulse 97 Pulse Source Pulse Oximeter Temp 98.6 F Temp Source Oral Pulse Oximetry (%) 99 Oxygen Delivery Method Room Air Intake Visit Reasons: EP Cold symptoms 1+week, productive cough Intake Note: Pt presents to the office today for c/o congestion, green phlegm, and sinus pressure x1 week. Patient Tobacco Use Status: Never used Tobacco Allergies No Known Allergies Allergy (Verified 01/03/25 10:55) HPI HPI Comments 2 History of Present Illness Details History of Present Illness - The patient is a 39-year-old female pr esenting with upper respiratory symptoms persisting for a week. - She reports significant nasal congesti on and sore throat, with the throat appearing bright red. - Productive cough is present with color ed sputum. - Past medical history includes asthma, managed with albuterol. - Current medications include Mucinex an d allergy control agents (Zyrtec and Flonase). - No history of smoking or exposure to s econdhand smoke; denies shortness of breath. - Sinus pain primarily affects the ears and throat. - Symptoms have not improved with initia l self-care measures. - She denies fever or chills. She denies abd pain, n/v/d, CP, SOB, GONZALEZ, dizziness, weakness, or sick contacts. - She does not smoke. She has no sick co ntacts. Physical Exam General: Cooperative, healthy appearing, comfortable, no acute distress and well developed Orientation: Patient oriented x3 Head: Normal to inspection Ears: Hearing grossly normal bilaterally, but patient reports ear pain and pressure Nose: Normal external nose present, normal turninates. Face and sinus: Normal facial exam, no sinus tenderness noted. Eyes: Appearance normal, both eyes and all related structures Neck: Normal visual inspection, and Yes full ROM. No lymphadenopathy noted. Respiratory: Normal respiratory effort and able to speak in complete sentences. Clear to auscultation bilaterally, no w/r/r noted. Cardiovascular: Regular rate and rhythm. Normal S1 and S2 GI: Normal to inspection. Soft to palpation and nontender. No guarding noted. No rebound tenderness noted. Skin: No rashes or lesions noted Patient was informed and verbally consented to the use of an ambient scribe for clinic note documentation during this visit. [facility] Medical History (Updated 10/25/24 @ 11:00 by Marjan Khan PA-C) Cough Asthma Anxiety Surgical History (Updated 09/05/24 @ 10:59 by Tramaine Cochran MD) Reducible umbilical hernia (08/25/24) Hx laparoscopic cholecystectomy Hx of local excision of skin lesion Family History Father Prostate CA Social History Alcohol intake: never Patient Tobacco Use Status: Never used Tobacco Review of Systems Const All systems reviewed & are unremarkable except as noted in HPI and below Physical Exam Vital Signs: Last Vital Signs Temp 98.6 F 01/03/25 10:45 Pulse 97 01/03/25 10:45 BP 142/94 H 01/03/25 10:45 Pulse Ox 99 01/03/25 10:45 Oxygen Delivery Method Room Air 01/03/25 10:45 BMI result Body Mass Index 36.7 Assessment & Plan Assessment & Plan (1) URI with cough and congestion: Code(s): J06.9 - Acute upper respiratory infection, unspecified Plan Most likely URI vs sinusitis vs rhinitis vs CAP vs covid vs flu vs viral illness Plan - Tylenol or Motrin as needed - Diet as tolerated and drink lots of fluids. - Prescribed antibiotics due to the persistent respiratory symptoms and the possibility of developing a bacterial infection. - Continue Zyrtec and Flonase for allergic symptom control. - Maintain Mucinex for chest congestion. - Advise monitoring of symptoms with a recommendation to follow up if there is no improvement or worsening. Medications: New azithromycin For 250 mg dose pack: take 500 mg today (day 1), then 250 mg for 4 days (days 2-5) PO 6 tabs 0RF Coding Level of Care Code Est Pt Level 3 (88331) Diagnoses URI with cough and congestion J06.9
--- OUTSIDE RECORDS SUMMARY | 2025-01-03 11:09 | XMS_ITS ---
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 Name Role Phone Mauro Laguna Primary Care Provider [phone] REASON FOR VISIT yearly fasting labs Medications Medication SIG (Take, Route, Frequency, Duration) Notes Start Date End Date Status Amoxicillin-Pot Clavulanate 875-125 MG 1 tablet Orally every 12 hrs for 7 days 10/05/2024 Active FLUoxetine HCl 10 MG 1 capsule Orally On ce a day for 30 days 02/07/2024 Active Ibuprofen 800 MG 1 tablet with food o r milk as needed Orally every 8 hrs for 10 days 09/21/2022 Not-Taki ng Fluticasone Propionate 50 MCG/ACT SPRAY 1 SPRAY IN EACH NOSTRIL ONCE A DAY NASALLY for 90 Not-Taking Iron 325 (65 Fe) MG 1 tablet Orally twic e a week Not-Taking ZyrTEC Allergy 10 MG 1 tablet Orally Onc e a day for 30 day(s) Active ProAir HFA 108 (90 Base) MCG/ACT 2 puffs as needed Inhalation every 4 hrs for 30 days 07/02/2015 Active LORazepam 0.5 MG 1 tablet at bedtime as needed Orally Once a day for 30 days 04/13/2024 Active Encounters Encounter Location Date Provider Diagnosis Mauro Laguna MD [address] [place], [place] [phone] 12/07/2024 Mauro Laguna Blood tests for routine general physical examination Z00.00 ; Other iron deficiency anemia D50.8 ; Low HDL (under 40) E78.6 and Prediabetes R73.09 Assessments Encounter Date Diagnosis (ICD Code) Assessment Notes Treatment Notes Treatment Clinical Notes Section Notes 12/07/2024 Blood tests for routine general physical examination (ICD-10 - Z00.00) 12/07/2024 Other iron deficiency anemia (ICD-10 - D50.8) 12/07/2024 Low HDL (under 40) (ICD-10 - E78.6) 12/07/2024 Prediabetes (ICD-10 - R73.09) Plan Of Treatment Pending Test Test Name Order Date Complete Blood Count Auto Diff Comprehensive [place]. Panel Fast IRON PROFILE 12/07/2024 Lipid Panel 12/07/2024 Microalbumin, Random 12/07/2024 Hemoglobin A1c 12/07/2024 UA ClnCatch+Micro w/rflx Cult 12/07/2024 Progress Notes * Julianne BEACH NDOB:[birth year] (39 yo F)Acc No.[id number]:12/07/2024 Progress Note Patient:?BULL Julianne Adrianne Provider:?Mauro Laguna MD :1985???Age:39 Y???Sex:Female D ate:12/07/2024 Address: [address], [facility] Subjective: * Chief Complaints: * ???1. Yearly fasting labs. * Medical History:? * Medications:?Taking ZyrTEC A llergy 10 MG Tablet 1 tablet Orally Once a day , Taking ProAir HFA 108 (90 Base) MCG/ACT Aerosol Solution 2 puffs as needed Inhalation every 4 hrs , Taking LORazepam 0.5 MG Tablet 1 tablet at bedtime as needed Orally Once a day , Taking Amoxicillin-Pot Clavulanate 875-125 MG Tablet 1 tablet Orally every 12 hrs , Taking FLUoxetine HCl 10 MG Capsule 1 capsule Orally Once a day , Not-Taking/PRN Ibuprofen 800 MG Tablet 1 tablet with food or milk as needed Orally every 8 hrs , Not-Taking/PRN Fluticasone Propionate 50 MCG/ACT Suspension SPRAY 1 SPRAY IN EACH NOSTRIL ONCE A DAY NASALLY , Not-Taking/PRN Iron 325 (65 Fe) MG Tablet 1 tablet Orally twice a week Objective: * Vitals:? Assessment: * Assessment: 1.?Blood tests for routine g eneral physical examination - Z00.00 (Primary)???2.?Other iron deficiency anemia - D50.8???3.?Low HDL (under 40) - E78.6???4.?Prediabetes - R73.09??? Plan: * Treatment: 2.?Other iron deficiency ane brian?LAB: Complete Blood Count Auto Diff ?LAB: Comprehensive [place]. Panel Fast ?LAB: IRON PROFILE ?LAB: Lipid Panel ?LAB: Microalbumin, Random ?LAB: Hemoglobin A1c ?LAB: UA ClnCatch+Micro w/rflx Cult 3.?Low HDL (under 40)?LAB: Complete Blood Count Auto Diff ?LAB: [facility] [place]. Panel Fast ?LAB: IRON PROFILE ?LAB: Lipid Panel ?LAB: Microalbumin, Random ?LAB: Hemoglobin A1c ?LAB: UA ClnCatch+Micro w/rflx Cult 4.?Prediabetes?LAB: Complete Blood Count Auto Diff ?LAB: Comprehensive [place]. Panel Fast ?LAB: IRON PROFILE ?LAB: Lipid Panel ?LAB: Microalbumin, Random ?LAB: Hemoglobin A1c ?LAB: UA ClnCatch+Micro w/rflx Cult * * The named appointment provid er may or may not be the originator of this progress note, and it is not deemed complete until electronically signed by the appointment provider. Sign off status: Pending * Provider:?Mauro Laguna MD Date:?0 12/07/2024 Generated for Woody webb/Radha/eTransmitting on:?01/03/2025 11:09 AM EDT
== END 2025-01-03 11:16 | disposition home or self-care (01) ==
PROVIDERS: PCP Internal Medicine; Visit Provider Physician Assistant Medical
DX: J06.9 Acute upper respiratory infection, unspecified (principal)

== ENCOUNTER → 2025-01-03 09:59 | Outpatient (BNVA) | payer BC, SELFPAY | PROVIDERS: PCP Internal Medicine; Visit Provider Physician Assistant Medical ==